=== PATIENT | male | born 1985 | race Caucasian/White ===

== ENCOUNTER 2021-06-04 20:30 | Inpatient (IN) | payer MEDICAID ==
[~2021-06-04] VITALS: Ht 182.9 cm; Wt 75.0 kg
[2021-06-04 22:12] LABS: NEUTROPHILS # (AUTO) 6.2 X10'3 (1.8-7.7)
[2021-06-04 22:13] LABS: BASOPHILS % (AUTO) 0.5 % (0-1); EOSINOPHILS # (AUTO) 0.1 X10'3 (0-0.9); EOSINOPHILS % (AUTO) 1.5 % (0-6); HEMATOCRIT 37.4 % (42.0-52.0); HEMOGLOBIN 12.8 g/dl (14.0-17.9); LYMPHOCYTES % (AUTO) 21.9 % (21-51); MEAN CORPUSCULAR HEMOGLOBIN 31.9 PG (27.0-31.0); MEAN CORPUSCULAR HGB CONC 34.1 g/dL (33.0-36.5); MEAN CORPUSCULAR VOLUME 93.4 FL (78-98); MEAN PLATELET VOLUME 6.3 FL (7.4-10.4); MONOCYTES # (AUTO) 0.9 X10'3 (0-0.9); MONOCYTES % (AUTO) 9.2 % (2-12); NEUTROPHILS % (AUTO) 66.9 % (42-75); PLATELET COUNT 674 X10'3 (140-440); RED CELL DISTRIBUTION WIDTH 14.6 % (11.5-14.5); WHITE BLOOD COUNT 9.2 X10'3 (4.5-11.0)
--- NOTE | 2021-06-04 22:15 | NUR ---
one inch area of yellow slough tissue removed that had left over suture material embedded into it. Area cleansed with sterile water, pat dry and non adherent dressing and coban applied. Encouraged him that it really good and that he had been doing a very good job with the cleansing of the wound. He was really relieved that it looked ok.
[2021-06-04 22:29] LABS: ALANINE AMINOTRANSFERASE 58 U/L (12-78); ALBUMIN 2.8 G/DL (3.4-5.0); ALBUMIN/GLOBULIN RATIO 0.6 (1.1-1.5); ALKALINE PHOSPHATASE 108 IU/L (46-116); ANION GAP 10 (8-16); ASPARTATE AMINO TRANSFERASE 64 U/L (10-37); BILIRUBIN,TOTAL 0.2 MG/DL (0.1-1.0); BLOOD UREA NITROGEN 6 MG/DL (7-18); CALCIUM 8.4 MG/DL (8.5-10.1); CHLORIDE 104 MMOL/L (99-107); CREATININE 0.86 MG/DL (0.60-1.10); GLUCOSE 92 MG/DL (70-104); POTASSIUM 3.8 MMOL/L (3.5-5.1); SODIUM 141 MMOL/L (135-145); TOTAL CARBON DIOXIDE 26.6 MMOL/L (24-32); TOTAL PROTEIN 7.2 G/DL (6.4-8.2); eGFR > 90 ML/MIN
[2021-06-04] MEDS ORDERED: clindamycin 600mg/D5W 50ml 50 ML IV ONE (22:30)
[2021-06-04] MEDS ORDERED: iohexol 300mg/ml 100ml inj. ONE (22:42)
--- NOTE | 2021-06-04 22:42 | NUR ---
pt to CT. Redressed the wound, PA took bandage off.
--- NOTE | 2021-06-04 22:59 | NUR ---
back from CT. Took him warmed blankets. He is in good spirits.
[2021-06-04 23:14] LABS: TOTAL CELLS COUNTED 100
[2021-06-04 23:15] LABS: PLATELET ESTIMATE INCREASED
[2021-06-04] MEDS ORDERED: normal saline 1000ml 1,000 ML IV ONE (23:25)
[2021-06-04] MEDS ORDERED: NO HOME MEDS (23:52)
[2021-06-05 01:53] LABS: C-REACTIVE PROTEIN 2.94 MG/DL (0.0-0.5)
[2021-06-05] MEDS ORDERED: mag hydrox/Alum hydrox/simeth 30ml oral suspension PO PRN (02:10)
[2021-06-05] MEDS ORDERED: acetaminophen 325mg tablet PO PRN (02:10)
[2021-06-05] MEDS ORDERED: magnesium hydroxide 30ml (MOM) UD suspension PO PRN (02:10)
[2021-06-05] MEDS ORDERED: ondansetron/PF 4mg/2ml inj IV PRN (02:10)
[2021-06-05] MEDS ORDERED: potassium Cl 20 mEq SR tablet PO PRN ×2 (02:10)
[2021-06-05] MEDS ORDERED: potassium Cl 40MEQ/1/2NS 520ml 520 ML IV PRN ×2 (02:10)
--- NOTE | 2021-06-05 02:33 | NUR ---
When Dr Campos was at the BS, the dressing was taken off and there was copious amount of sangenous fluid that was on the dressing/saturated. 2X2s sopped up the drainage. The upper arm was gently massaged in a downward motion to the wound and copious amts of same drainage came out of the arm. Redressed with non adherant and sterile 4x4s and kerlix roll and taped into place.
[2021-06-05] MEDS: normal saline 1000ml 1,000 ML IV SCH ×2 (02:58→12:10)
[2021-06-05 03:33] LABS: URINE AMPHETAMINE SCREEN POSITIVE (Neg); URINE BARBITUATE SCREEN NEGATIVE (Neg); URINE BENZODIAZEPINES SCREEN POSITIVE (Neg); URINE CANNABINOID SCREEN NEGATIVE (Neg); URINE COCAINE SCREEN NEGATIVE (Neg); URINE METHADONE SCREEN NEGATIVE (Neg); URINE OPIATE SCREEN POSITIVE (Neg); URINE PHENCYCLIDINE SCREEN NEGATIVE (Neg)
--- NOTE | 2021-06-05 05:14 | NUR ---
changed his dressing, it was saturated.
--- NOTE | 2021-06-05 07:20 | NUR ---
Patient in room [facility]. I have received report from Janak Elena from ED and had the opportunity to ask questions and assume patient care.
--- NOTE | 2021-06-05 07:25 | NUR ---
Pt is A & O x4 and in apparent distress, came to floor in a wheel chair. Pt has a wound on left upper arm. skin clear besides the cellulitis/infection on left upper arm.
[2021-06-05 08:00] VITALS: BP 141/84
[2021-06-05] MEDS: K and/or MAG REPLACEMENT MC SCH ×2 (08:00→20:00)
[2021-06-05] MEDS: docusate sod 100mg capsule PO SCH ×3 (08:00→20:00)
[2021-06-05] MEDS: clindamycin 600mg/D5W 50ml 50 ML IV SCH ×3 (09:42→20:18)
[2021-06-05] MEDS: heparin, porcine 5000 units/ml vial SQ SCH ×2 (09:44→19:53)
[2021-06-05] MEDS ORDERED: LORazepam 2 mg/ml vial IV PRN (10:40)
[2021-06-05] MEDS ORDERED: thiamine inj. 100 MG in normal saline 100ml IV soln 100 ML IV ONE (10:40)
[2021-06-05] MEDS ORDERED: haloperidol 5mg tablet PO PRN (10:40)
[2021-06-05] MEDS ORDERED: haloperidol lactate 5mg/ml inj IM PRN (10:40)
[2021-06-05 11:00] VITALS: BP 146/76
[2021-06-05] MEDS: LORazepam 1 MG tablet PO PRN (11:32)
[2021-06-05] MEDS: nicotine 14mg patch - 24hr TD SCH (11:32)
--- NOTE | 2021-06-05 16:10 | NUR ---
Patient L arm wound dressing was soiled. Dressing replaced with opti foam and krelex wrap. Wound was clean with normal saline.
[2021-06-05 18:00] VITALS: BP 127/72
--- NOTE | 2021-06-05 18:26 | NUR ---
Problems reprioritized. Patient report given, questions answered & plan of care reviewed with Jody ROBERTO.
[2021-06-05] MEDS: lactobacillus rhamnosus 10,000 MMU CELLS/CAPSULE PO SCH (19:53)
[2021-06-06] VITALS: BP 133/77
[2021-06-06] MEDS: LORazepam 1 MG tablet PO PRN ×5 (00:26→22:10)
[2021-06-06] MEDS: normal saline 1000ml 1,000 ML IV SCH ×3 (03:21→18:10)
[2021-06-06] MEDS: clindamycin 600mg/D5W 50ml 50 ML IV SCH ×4 (03:21→21:51)
[2021-06-06 06:12] LABS: EOSINOPHILS # (AUTO) 0.1 X10'3 (0-0.9); MONOCYTES # (AUTO) 0.5 X10'3 (0-0.9); MONOCYTES % (AUTO) 6.7 % (2-12); NEUTROPHILS # (AUTO) 5.9 X10'3 (1.8-7.7)
[2021-06-06 06:16] LABS: BASOPHILS % (AUTO) 0.5 % (0-1); EOSINOPHILS % (AUTO) 1.1 % (0-6); HEMATOCRIT 36.2 % (42.0-52.0); HEMOGLOBIN 12.6 g/dl (14.0-17.9); LYMPHOCYTES # (AUTO) 1.4 X10'3 (1.1-4.8); LYMPHOCYTES % (AUTO) 17.8 % (21-51); MEAN CORPUSCULAR HEMOGLOBIN 32.1 PG (27.0-31.0); MEAN CORPUSCULAR HGB CONC 34.8 g/dL (33.0-36.5); MEAN CORPUSCULAR VOLUME 92.3 FL (78-98); MEAN PLATELET VOLUME 6.5 FL (7.4-10.4); NEUTROPHILS % (AUTO) 73.9 % (42-75); PLATELET COUNT 672 X10'3 (140-440); RED BLOOD COUNT 3.92 X10'6 (4.70-6.10); RED CELL DISTRIBUTION WIDTH 13.9 % (11.5-14.5)
[2021-06-06 06:23] LABS: ALANINE AMINOTRANSFERASE 45 U/L (12-78); ALBUMIN 2.4 G/DL (3.4-5.0); ALBUMIN/GLOBULIN RATIO 0.6 (1.1-1.5); ALKALINE PHOSPHATASE 95 IU/L (46-116); ANION GAP 10 (8-16); ASPARTATE AMINO TRANSFERASE 26 U/L (10-37); BILIRUBIN,TOTAL 0.3 MG/DL (0.1-1.0); BLOOD UREA NITROGEN 11 MG/DL (7-18); BUN/CREATININE RATIO 14.5 (5.4-32.0); CALCIUM 8.4 MG/DL (8.5-10.1); CHLORIDE 106 MMOL/L (99-107); CREATININE 0.76 MG/DL (0.60-1.10); GLUCOSE 96 MG/DL (70-104); POTASSIUM 3.8 MMOL/L (3.5-5.1); SODIUM 142 MMOL/L (135-145); TOTAL CARBON DIOXIDE 26.1 MMOL/L (24-32); TOTAL PROTEIN 6.6 G/DL (6.4-8.2); eGFR > 90 ML/MIN
--- NOTE | 2021-06-06 06:28 | NUR ---
Problems reprioritized. Patient report given, questions answered & plan of care reviewed with PARDEEP Crum.
--- NOTE | 2021-06-06 06:35 | NUR ---
Patient in room [facility]. I have received report from MARIUSZ ROBERTO and had the opportunity to ask questions and assume patient care.
[2021-06-06 07:00] VITALS: BP 126/83
[2021-06-06] MEDS: K and/or MAG REPLACEMENT MC SCH ×2 (08:00→20:00)
[2021-06-06] MEDS: docusate sod 100mg capsule PO SCH ×2 (08:00→20:00)
[2021-06-06] MEDS: multivitamins, therapeutics tablet PO SCH (08:07)
[2021-06-06] MEDS: thiamine 100mg tablet PO SCH (08:08)
[2021-06-06] MEDS: lactobacillus rhamnosus 10,000 MMU CELLS/CAPSULE PO SCH ×2 (08:08→21:52)
[2021-06-06] MEDS: PARoxetine 20mg tablet PO SCH (08:08)
[2021-06-06] MEDS: folic acid 1mg tablet PO SCH (08:08)
[2021-06-06] MEDS: nicotine 14mg patch - 24hr TD SCH (08:09)
[2021-06-06] MEDS: heparin, porcine 5000 units/ml vial SQ SCH ×2 (08:10→21:52)
[2021-06-06 11:00] VITALS: BP 131/65
[2021-06-06 15:28] VITALS: BP 128/79
[2021-06-06] MEDS: HYDROcodone/acetaminophen 5mg/325mg tablet PO PRN ×2 (15:55→22:11)
[2021-06-06 18:00] VITALS: BP 125/90
--- NOTE | 2021-06-06 18:23 | NUR ---
Patient in room [facility]. I have received report from PARDEEP Crum and had the opportunity to ask questions and assume patient care.
--- NOTE | 2021-06-06 18:25 | NUR ---
patient up and about norco given x1 for pain. Ativan x2 for anxiety and withdrawal with effect. dressing change done x2. wound team will address in am. ok to do wet to dry per Delia ROBERTO. Wound culture sent off. report given to Jody ROBERTO
[2021-06-06] MEDS: vancomycin/NS 1 GM ADD-VANTAGE 250 ML IV SCH (23:51)
[2021-06-07] VITALS: BP 125/60
[2021-06-07] MEDS: clindamycin 600mg/D5W 50ml 50 ML IV SCH ×4 (02:40→22:00)
[2021-06-07] MEDS: normal saline 1000ml 1,000 ML IV SCH ×2 (02:44→14:29)
[2021-06-07] MEDS: vancomycin/NS 1 GM ADD-VANTAGE 250 ML IV SCH ×3 (03:00→19:08)
[2021-06-07] MEDS: LORazepam 1 MG tablet PO PRN ×3 (05:05→22:41)
[2021-06-07 06:30] LABS: EOSINOPHILS # (AUTO) 0.1 X10'3 (0-0.9); LYMPHOCYTES # (AUTO) 1.4 X10'3 (1.1-4.8); MEAN PLATELET VOLUME 6.7 FL (7.4-10.4); MONOCYTES # (AUTO) 0.6 X10'3 (0-0.9); WHITE BLOOD COUNT 7.3 X10'3 (4.5-11.0)
[2021-06-07 06:32] LABS: BASOPHILS % (AUTO) 0.6 % (0-1); EOSINOPHILS % (AUTO) 0.7 % (0-6); HEMOGLOBIN 12.7 g/dl (14.0-17.9); LYMPHOCYTES % (AUTO) 19.1 % (21-51); MEAN CORPUSCULAR HEMOGLOBIN 31.7 PG (27.0-31.0); MEAN CORPUSCULAR HGB CONC 34.4 g/dL (33.0-36.5); MEAN CORPUSCULAR VOLUME 92.1 FL (78-98); NEUTROPHILS # (AUTO) 5.2 X10'3 (1.8-7.7); NEUTROPHILS % (AUTO) 71.6 % (42-75); PLATELET COUNT 748 X10'3 (140-440); RED BLOOD COUNT 4.02 X10'6 (4.70-6.10); RED CELL DISTRIBUTION WIDTH 14.4 % (11.5-14.5)
[2021-06-07 06:47] LABS: ALANINE AMINOTRANSFERASE 39 U/L (12-78); ALBUMIN 2.6 G/DL (3.4-5.0); ALBUMIN/GLOBULIN RATIO 0.6 (1.1-1.5); ALKALINE PHOSPHATASE 93 IU/L (46-116); ANION GAP 13 (8-16); ASPARTATE AMINO TRANSFERASE 19 U/L (10-37); BILIRUBIN,TOTAL 0.3 MG/DL (0.1-1.0); BLOOD UREA NITROGEN 11 MG/DL (7-18); BUN/CREATININE RATIO 11.7 (5.4-32.0); CHLORIDE 104 MMOL/L (99-107); CREATININE 0.94 MG/DL (0.60-1.10); GLUCOSE 104 MG/DL (70-104); POTASSIUM 4.1 MMOL/L (3.5-5.1); SODIUM 143 MMOL/L (135-145); TOTAL CARBON DIOXIDE 26.3 MMOL/L (24-32); eGFR 90 ML/MIN
--- NOTE | 2021-06-07 06:55 | NUR ---
Patient in room [facility]. I have received report from Jody ROBERTO and had the opportunity to ask questions and assume patient care.
[2021-06-07 08:00] VITALS: BP 118/70
[2021-06-07] MEDS: K and/or MAG REPLACEMENT MC SCH ×2 (08:00→20:00)
[2021-06-07] MEDS: docusate sod 100mg capsule PO SCH ×2 (08:00→20:00)
[2021-06-07] MEDS: thiamine 100mg tablet PO SCH (08:01)
[2021-06-07] MEDS: lactobacillus rhamnosus 10,000 MMU CELLS/CAPSULE PO SCH ×2 (08:02→19:10)
[2021-06-07] MEDS: HYDROcodone/acetaminophen 5mg/325mg tablet PO PRN ×4 (08:04→23:24)
[2021-06-07] MEDS: PARoxetine 20mg tablet PO SCH (08:05)
[2021-06-07] MEDS: multivitamins, therapeutics tablet PO SCH (08:05)
[2021-06-07] MEDS: folic acid 1mg tablet PO SCH (08:06)
[2021-06-07] MEDS: heparin, porcine 5000 units/ml vial SQ SCH ×2 (08:07→19:09)
[2021-06-07] MEDS: nicotine 14mg patch - 24hr TD SCH (08:10)
--- NOTE | 2021-06-07 09:02 | NUR ---
WOUND INFECTION EDUCATION PROVIDED BY WOUND CARE 1. Patient instructed to call their primary doctor, or go the ED immediately if any of the following symptoms occur: * Increased pain in wound * Increase in drainage from the wound * Redness in the skin surrounding the wound * Warmth in the skin surrounding the wound * Bleeding from the wound * Temperature of 101 or greater 2. If any of these occur while in the hospital tell a nurse immediately. Addendum: 06/07/21 at 0902 by Christine Hilliard RN Amended: Links added.
[2021-06-07 11:00] VITALS: BP 127/82
--- NOTE | 2021-06-07 16:30 | NUR ---
PAGER ID: [phone] MESSAGE: philippe Christie [id number]- Pt wants to get gabapentin. pt states he used to take it before admit, 100mg bid. Also can we add Ativan 1mg tab po. 2 mg puts him to sleep. Thank you. [facility] :)
[2021-06-07 18:00] VITALS: BP 130/81
--- NOTE | 2021-06-07 18:29 | NUR ---
Problems reprioritized. Patient report given, questions answered & plan of care reviewed with Steff ROBERTO.
[2021-06-07] MEDS ORDERED: VANCOMYCIN LEVEL IV ONE (18:30)
--- NOTE | 2021-06-07 18:30 | NUR ---
Patient in room [facility]. I have received report from PARDEEP Munroe and had the opportunity to ask questions and assume patient care.
[2021-06-07] MEDS: gabapentin 100mg capsule PO SCH (19:10)
--- NOTE | 2021-06-07 22:13 | NUR ---
Pt refused colace, states regular BM. Benefits discussed with pt.
--- NOTE | 2021-06-07 22:36 | NUR ---
Changed pt dressing, tolerated well. IV infiltrated.
[2021-06-08] VITALS: BP 111/54
[2021-06-08] MEDS: normal saline 1000ml 1,000 ML IV SCH ×3 (00:10→15:17)
[2021-06-08] MEDS: clindamycin 600mg/D5W 50ml 50 ML IV SCH ×4 (02:53→23:52)
[2021-06-08] MEDS: diphenhydrAMINE 25mg capsule PO PRN ×2 (02:55→20:47)
[2021-06-08] MEDS: vancomycin/NS 1 GM ADD-VANTAGE 250 ML IV SCH (03:55)
[2021-06-08 06:09] LABS: EOSINOPHILS # (AUTO) 0.1 X10'3 (0-0.9); LYMPHOCYTES # (AUTO) 1.4 X10'3 (1.1-4.8)
[2021-06-08 06:12] LABS: BASOPHILS % (AUTO) 0.5 % (0-1); HEMATOCRIT 40.1 % (42.0-52.0); HEMOGLOBIN 13.3 g/dl (14.0-17.9); LYMPHOCYTES % (AUTO) 20.6 % (21-51); MEAN CORPUSCULAR HEMOGLOBIN 30.9 PG (27.0-31.0); MEAN CORPUSCULAR HGB CONC 33.2 g/dL (33.0-36.5); MEAN CORPUSCULAR VOLUME 93.1 FL (78-98); MEAN PLATELET VOLUME 6.8 FL (7.4-10.4); MONOCYTES # (AUTO) 0.6 X10'3 (0-0.9); MONOCYTES % (AUTO) 8.3 % (2-12); NEUTROPHILS # (AUTO) 4.8 X10'3 (1.8-7.7); NEUTROPHILS % (AUTO) 69.6 % (42-75); PLATELET COUNT 813 X10'3 (140-440); RED CELL DISTRIBUTION WIDTH 14.8 % (11.5-14.5); WHITE BLOOD COUNT 6.9 X10'3 (4.5-11.0)
[2021-06-08 06:32] LABS: ALANINE AMINOTRANSFERASE 36 U/L (12-78); ALBUMIN 2.8 G/DL (3.4-5.0); ALBUMIN/GLOBULIN RATIO 0.6 (1.1-1.5); ALKALINE PHOSPHATASE 85 IU/L (46-116); ANION GAP 12 (8-16); ASPARTATE AMINO TRANSFERASE 14 U/L (10-37); BILIRUBIN,TOTAL 0.3 MG/DL (0.1-1.0); BLOOD UREA NITROGEN 17 MG/DL (7-18); BUN/CREATININE RATIO 22.4 (5.4-32.0); CALCIUM 8.9 MG/DL (8.5-10.1); CHLORIDE 103 MMOL/L (99-107); CREATININE 0.76 MG/DL (0.60-1.10); GLUCOSE 93 MG/DL (70-104); POTASSIUM 3.8 MMOL/L (3.5-5.1); SODIUM 140 MMOL/L (135-145); TOTAL CARBON DIOXIDE 25.2 MMOL/L (24-32); TOTAL PROTEIN 7.3 G/DL (6.4-8.2); eGFR > 90 ML/MIN
--- NOTE | 2021-06-08 06:56 | NUR ---
Problems reprioritized. Patient report given, questions answered & plan of care reviewed with PARDEEP Bell.
[2021-06-08 08:00] VITALS: BP 108/69
[2021-06-08] MEDS: docusate sod 100mg capsule PO SCH ×2 (08:00→20:47)
[2021-06-08] MEDS: K and/or MAG REPLACEMENT MC SCH ×2 (08:00→20:00)
[2021-06-08] MEDS: lactobacillus rhamnosus 10,000 MMU CELLS/CAPSULE PO SCH ×2 (10:18→20:47)
[2021-06-08] MEDS: folic acid 1mg tablet PO SCH (10:18)
[2021-06-08] MEDS: thiamine 100mg tablet PO SCH (10:18)
[2021-06-08] MEDS: PARoxetine 20mg tablet PO SCH (10:18)
[2021-06-08] MEDS: gabapentin 100mg capsule PO SCH ×2 (10:18→20:47)
[2021-06-08] MEDS: multivitamins, therapeutics tablet PO SCH (10:18)
[2021-06-08] MEDS: nicotine 14mg patch - 24hr TD SCH (10:19)
[2021-06-08] MEDS: heparin, porcine 5000 units/ml vial SQ SCH ×2 (10:19→20:47)
[2021-06-08] MEDS: HYDROcodone/acetaminophen 5mg/325mg tablet PO PRN ×3 (10:25→20:48)
[2021-06-08] MEDS: VANCOmycin 1250MG/NS 250ml Bag 250 ML IV SCH ×2 (11:43→21:44)
[2021-06-08] MEDS: LORazepam 1 MG tablet PO PRN ×2 (13:12→21:46)
--- NOTE | 2021-06-08 18:54 | NUR ---
Gave report to traveler PARDEEP Mock.
[2021-06-08 19:00] VITALS: BP 111/64
[2021-06-09] VITALS: BP 120/69
[2021-06-09] MEDS: clindamycin 600mg/D5W 50ml 50 ML IV SCH ×3 (03:07→14:48)
[2021-06-09] MEDS: VANCOmycin 1250MG/NS 250ml Bag 250 ML IV SCH ×2 (04:17→12:38)
[2021-06-09] MEDS: normal saline 1000ml 1,000 ML IV SCH (06:42)
[2021-06-09 06:44] LABS: BASOPHILS # (AUTO) 0.1 X10'3 (0-0.2); BASOPHILS % (AUTO) 0.8 % (0-1); EOSINOPHILS # (AUTO) 0.1 X10'3 (0-0.9); EOSINOPHILS % (AUTO) 1.5 % (0-6); HEMATOCRIT 40.2 % (42.0-52.0); HEMOGLOBIN 13.7 g/dl (14.0-17.9); LYMPHOCYTES # (AUTO) 1.6 X10'3 (1.1-4.8); LYMPHOCYTES % (AUTO) 23.7 % (21-51); MEAN CORPUSCULAR HEMOGLOBIN 31.8 PG (27.0-31.0); MEAN CORPUSCULAR HGB CONC 34.1 g/dL (33.0-36.5); MEAN CORPUSCULAR VOLUME 93.3 FL (78-98); MEAN PLATELET VOLUME 6.5 FL (7.4-10.4); MONOCYTES # (AUTO) 0.6 X10'3 (0-0.9); MONOCYTES % (AUTO) 8.7 % (2-12); NEUTROPHILS # (AUTO) 4.3 X10'3 (1.8-7.7); NEUTROPHILS % (AUTO) 65.3 % (42-75); PLATELET COUNT 847 X10'3 (140-440); RED BLOOD COUNT 4.31 X10'6 (4.70-6.10); RED CELL DISTRIBUTION WIDTH 14.6 % (11.5-14.5); WHITE BLOOD COUNT 6.6 X10'3 (4.5-11.0)
[2021-06-09 07:00] VITALS: BP 166/86
[2021-06-09 07:03] LABS: ALANINE AMINOTRANSFERASE 32 U/L (12-78); ALBUMIN 2.9 G/DL (3.4-5.0); ALBUMIN/GLOBULIN RATIO 0.6 (1.1-1.5); ALKALINE PHOSPHATASE 81 IU/L (46-116); ANION GAP 11 (8-16); ASPARTATE AMINO TRANSFERASE 12 U/L (10-37); BILIRUBIN,TOTAL 0.3 MG/DL (0.1-1.0); BLOOD UREA NITROGEN 14 MG/DL (7-18); BUN/CREATININE RATIO 17.5 (5.4-32.0); CALCIUM 8.9 MG/DL (8.5-10.1); CHLORIDE 103 MMOL/L (99-107); GLUCOSE 90 MG/DL (70-104); POTASSIUM 3.7 MMOL/L (3.5-5.1); SODIUM 140 MMOL/L (135-145); TOTAL CARBON DIOXIDE 25.9 MMOL/L (24-32); TOTAL PROTEIN 7.5 G/DL (6.4-8.2); eGFR > 90 ML/MIN
--- NOTE | 2021-06-09 07:39 | NUR ---
Patient in room [facility]. I have received report from Nish ROBERTO and had the opportunity to ask questions and assume patient care.
[2021-06-09] MEDS: K and/or MAG REPLACEMENT MC SCH (08:00)
[2021-06-09] MEDS: docusate sod 100mg capsule PO SCH (08:00)
[2021-06-09] MEDS: lactobacillus rhamnosus 10,000 MMU CELLS/CAPSULE PO SCH (08:33)
[2021-06-09] MEDS: HYDROcodone/acetaminophen 5mg/325mg tablet PO PRN ×2 (08:33→13:10)
[2021-06-09] MEDS: gabapentin 100mg capsule PO SCH (08:33)
[2021-06-09] MEDS: PARoxetine 20mg tablet PO SCH (08:33)
[2021-06-09] MEDS: folic acid 1mg tablet PO SCH (08:33)
[2021-06-09] MEDS: multivitamins, therapeutics tablet PO SCH (08:33)
[2021-06-09] MEDS: thiamine 100mg tablet PO SCH (08:33)
[2021-06-09] MEDS: nicotine 14mg patch - 24hr TD SCH (08:34)
[2021-06-09] MEDS: LORazepam 1 MG tablet PO PRN ×2 (08:34→14:48)
[2021-06-09] MEDS: heparin, porcine 5000 units/ml vial SQ SCH (08:35)
[2021-06-09] MEDS ORDERED: VANCOMYCIN LEVEL IV ONE (10:30)
[2021-06-09 11:00] VITALS: BP 121/77
[2021-06-09] MEDS ORDERED: PARO20TA6 PO (16:17)
[2021-06-09] MEDS ORDERED: CLIN-97 PO (16:17)
[2021-06-09] MEDS ORDERED: thiamine tablet PO (16:17)
[2021-06-09] MEDS ORDERED: NICO-631 TD (16:17)
[2021-06-09] MEDS ORDERED: ATI1T PO (16:17)
[2021-06-09] MEDS ORDERED: folic acid tablet PO (16:17)
[2021-06-09] MEDS ORDERED: MULT-25 PO (16:17)
--- NOTE | 2021-06-09 17:17 | NUR ---
patient up and about ativan and norco given for pain and anxiety related to withdrawals. Wound care done. Seen By Dr lawson. patient wishes to be DC as has a to go to tomorrow and states will follow up with wound care in [place]. Dr lawson aware. patient to be DC.
--- NOTE | 2021-06-09 17:19 | NUR ---
All Dc instructions given to patient and supplies for wound care given. patient DC home via private car to home in stable condition
== END 2021-06-09 17:49 | disposition home or self-care (01) | DRG 383 ==
LOC: ER 20:31 → ED HOLD 06-05 02:07 → UNDOADMIN 06-05 02:07 → ED HOLD 06-05 02:10 → SUR 3N 06-05 07:25
PROVIDERS: ADMIT Internal Medicine; ATTEND Family Medicine
PROC: BP2U1ZZ Computerized Tomography (CT Scan) of Left Upper Extremity using Low Osmolar Contrast (ICD-10-PCS; principal; 2021-06-04)
DX: L03.114 Cellulitis of left upper limb (principal); F10.230 Alcohol dependence with withdrawal, uncomplicated; F15.10 Other stimulant abuse, uncomplicated; F19.90 Other psychoactive substance use, unspecified, uncomplicated; F31.9 Bipolar disorder, unspecified; L02.414 Cutaneous abscess of left upper limb; F41.9 Anxiety disorder, unspecified; Z91.51 Personal history of suicidal behavior; Z88.0 Allergy status to penicillin; Z71.51 Drug abuse counseling and surveillance of drug abuser
CPT/HCPCS: 36415; 73201; 80053; 80202; 80305; 82948; 83605; 84145; 85007; 85025; 85651; 86140; 87040; 87070; 87081; 96361; 96365; 99285; G0378; J1644; J2060; J3370; J3411; J3490; J7030; Q0163; Q9967

== ENCOUNTER 2021-06-11 10:11 | Emergency (ER) | payer MEDICAID ==
[~2021-06-11] VITALS: Ht 182.9 cm; Wt 72.2 kg
[~2021-06-11 10:11] MED LIST: ATI1T PO; CLIN-97 PO; MULT-25 PO; NICO-631 TD; PARO20TA6 PO; folic acid tablet PO; thiamine tablet PO
[2021-06-11 11:41] LABS: HEMOGLOBIN 14.2 g/dl (14.0-17.9); MEAN CORPUSCULAR HGB CONC 34.9 g/dL (33.0-36.5)
[2021-06-11 11:45] LABS: EOSINOPHILS % (AUTO) 0.1 % (0-6); HEMATOCRIT 40.7 % (42.0-52.0); LYMPHOCYTES # (AUTO) 1.3 X10'3 (1.1-4.8); LYMPHOCYTES % (AUTO) 20.8 % (21-51); MEAN CORPUSCULAR VOLUME 91.8 FL (78-98); MEAN PLATELET VOLUME 6.1 FL (7.4-10.4); MONOCYTES # (AUTO) 0.5 X10'3 (0-0.9); MONOCYTES % (AUTO) 7.9 % (2-12); NEUTROPHILS # (AUTO) 4.4 X10'3 (1.8-7.7); NEUTROPHILS % (AUTO) 70.2 % (42-75); PLATELET COUNT 785 X10'3 (140-440); RED BLOOD COUNT 4.43 X10'6 (4.70-6.10); RED CELL DISTRIBUTION WIDTH 15.2 % (11.5-14.5); WHITE BLOOD COUNT 6.3 X10'3 (4.5-11.0)
[2021-06-11 11:46] LABS: BASOPHILS # (AUTO) 0.1 X10'3 (0-0.2)
[2021-06-11 11:47] LABS: ALANINE AMINOTRANSFERASE 37 U/L (12-78); ALBUMIN 3.5 G/DL (3.4-5.0); ALBUMIN/GLOBULIN RATIO 0.7 (1.1-1.5); ALKALINE PHOSPHATASE 87 IU/L (46-116); ANION GAP 14 (8-16); ASPARTATE AMINO TRANSFERASE 26 U/L (10-37); BILIRUBIN,TOTAL 0.3 MG/DL (0.1-1.0); BLOOD UREA NITROGEN 10 MG/DL (7-18); BUN/CREATININE RATIO 11.8 (5.4-32.0); CALCIUM 8.8 MG/DL (8.5-10.1); CHLORIDE 104 MMOL/L (99-107); CREATININE 0.85 MG/DL (0.60-1.10); GLUCOSE 103 MG/DL (70-104); POTASSIUM 3.7 MMOL/L (3.5-5.1); SODIUM 141 MMOL/L (135-145); TOTAL CARBON DIOXIDE 23.3 MMOL/L (24-32); TOTAL PROTEIN 8.2 G/DL (6.4-8.2); eGFR > 90 ML/MIN
[2021-06-11] MEDS ORDERED: clindamycin 150mg capsule PO ONE (13:20)
== END 2021-06-11 13:43 | disposition left against medical advice (07) ==
LOC: ER 10:11
DX: Z02.89 Encounter for other administrative examinations (principal); S41.101D Unspecified open wound of right upper arm, subsequent encounter; Z72.89 Other problems related to lifestyle; Z88.0 Allergy status to penicillin; Z79.2 Long term (current) use of antibiotics; Z79.899 Other long term (current) drug therapy; X58.XXXD Exposure to other specified factors, subsequent encounter
CPT/HCPCS: 80053; 85025; 99283